=== PATIENT | male | born 1990 | race African-American/Black ===

== ENCOUNTER 2020-01-07 23:36 | Emergency (ER) | payer SELFPAY ==
[2020-01-07] MEDS ORDERED: Lidocaine 1% (PF) 30 ML VIAL ONE (23:46)
[2020-01-07] MEDS ORDERED: Bacitracin 1 PK ONE (23:51)
== END 2020-01-08 00:14 | disposition home or self-care (01) ==
LOC: NAV ERS 23:36
DX: S71.111A Laceration without foreign body, right thigh, initial encounter (principal); W26.0XXA Contact with knife, initial encounter
CPT/HCPCS: 12002; J2001

== ENCOUNTER 2023-09-16 19:20 | Emergency (ER) | payer SELFPAY ==
[2023-09-16] MEDS ORDERED: Acetaminophen 500 MG TAB ONE (19:32)
[2023-09-16] MEDS ORDERED: HYDROcodone/Acetaminophen 5/325 mg Tablet ONE (19:47)
== END 2023-09-16 20:29 | disposition home or self-care (01) ==
LOC: NAV ERS 19:20
DX: S82.855A Nondisplaced trimalleolar fracture of left lower leg, initial encounter for closed fracture (principal); W18.30XA Fall on same level, unspecified, initial encounter
CPT/HCPCS: 29515